=== PATIENT | female | born 1975 | race Two or more races ===

== ENCOUNTER → 2017-06-25 | Outpatient (CLI) | payer BC ==
[~2017-06-25] MED LIST: REGADENOSON 0.4 MG/5 ML DISP.SYRIN. IV ONE
--- NOTE | 2017-06-25 11:52 | CARD ---
APPROVED REPORT EXAM: Two-dimensional and M-mode echocardiogram with Doppler and color Doppler. Other Information Quality : GoodHR: 72bpm Rhythm : NSR INDICATION Atypical chest pain RISK FACTORS Obesity Family History Smoking 2D DIMENSIONS RVDd3.0 (2.9-3.5cm)Left Atrium(2D)3.5 (1.6-4.0cm) IVSd1.0 (0.7-1.1cm)Aortic Root(2D)2.6 (2.0-3.7cm) LVDd4.1 (3.9-5.9cm)LVOT Diameter2.2 (1.8-2.4cm) PWd0.7 (0.7-1.1cm)LVDs2.6 (2.5-4.0cm) FS (%) 36.4 %SV49.7 ml LVEF(%)66.6 (>50%) Aortic Valve AoV Peak Pillo.103.8cm/sAoV VTI23.4cm AO Peak GR.4.3mmHgLVOT Peak Pillo.81.0cm/s AO Mean GR.3mmHgAVA (VMAX)2.92cm2 Mitral Valve MV E Mkolqgpo44.7cm/sMV E Peak Gr.3mmHg MV DECEL [id number] A Mmqjlwcu64.1cm/s MV E Mean Gr.1mmHgE/A Ratio1.3 MV A [id number] Pulmonary Valve PV Peak Uagzivlg38.8cm/s Pulmonary Vein S1 Ovuyofog90.2cm/sD2 Yxzslssw92.6cm/s PVa [id number] LEFT VENTRICLE The left ventricle is normal size. There is normal left ventricular wall thickness. The left ventricu lar systolic function is normal. The Ejection Fraction is 55-60%. There is normal LV segmental wall m otion. The left ventricular diastolic function and filling is normal for age. RIGHT VENTRICLE The right ventricle is normal size. There is normal right ventricular wall thickness. The right ventr icular systolic function is normal. ATRIA The left atrium size is normal. The right atrium size is normal. The interatrial septum is intact wit h no evidence for an atrial septal defect or patent foramen ovale as noted on 2-D or Doppler imaging. AORTIC VALVE The aortic valve is normal in structure and function and is trileaflet. Doppler and Color Flow reveal ed no significant aortic regurgitation. There is no significant aortic valvular stenosis. MITRAL VALVE There is no evidence of mitral valve prolapse. There is no mitral valve stenosis. Doppler and Color F low revealed trace mitral regurgitation. TRICUSPID VALVE Doppler and Color Flow revealed no tricuspid valve regurgitation noted. Unable to determine pulmonary artery pressure at exam time. PULMONIC VALVE The pulmonic valve is not well visualized but appears to open well. Doppler and Color Flow revealed m ild pulmonic valvular regurgitation. There is no pulmonic valvular stenosis by spectral Doppler. GREAT VESSELS The aortic root is normal in size. The ascending aorta is normal in size. The pulmonary artery is nor mal. The IVC is normal in size and collapses >50% with inspiration. PERICARDIAL EFFUSION There is no evidence of significant pericardial effusion. Critical Notification Critical Value: No <Conclusion> The left ventricular systolic function is normal. The Ejection Fraction is 55-60%. There is normal LV segmental wall motion. Doppler and Color Flow revealed trace mitral regurgitation. There is no evidence of significant pericardial effusion.
--- NOTE | 2017-06-25 12:41 | RAD ---
APPROVED REPORT Test Type: Pharmacological Stress Nurse/Tech: Leigh Oden R.N. Test Indications: dyspnea, slight chest pain Cardiac History: No known cardiac , smoker Medications: See Electronic Medical Record Medical History: See Electronic Medical Record Resting ECG: NSR Resting Heart Rate: 64 bpm Resting Blood Pressure: 116/58mmHg Pretest Chest Pain: No chest pain Nurse/Tech Notes S1S2, lungs sound clear Consent: The procedure was explained to the patient in lay terms. Informed consent was witnessed. Jean Marie eout was entered into [employer]. History and Stress Test performed by Leigh Oden R.N. Pharm. Details Pharmacologic stress testing was performed using 0.4mg per 5ml of regadenoson given intravenously ove r 7-10 seconds. Stress Symptoms Dyspnea POST EXERCISE Reason for Termination: Infusion complete Max HR: 112 bpm Max Blood Pressure: 114/62mmHg Blood Pressure response to exercise: Normal blood pressure response during stress. Chest Pain: No. Arrhythmia: No. ST Change: No. INTERPRETATION Stress EKG Conclusion: The resting EKG shows a normal sinus rhythm. The stress EKG shows no significant changes from baseline. No EKG evidence of stress-induced ischemia. Imaging Protocol IMAGE PROTOCOL: Rest Tc-99m/stress Tc-99m 1 day Rest: Stress: Viability: Radiopharm.Tc99m EomqkhvifZw88r Sestamibi Dose12.1mCi 33mCi Duration 15min. 10min. Img Date 06/25/2017 06/25/2017 Inj-Img [id number]. 60min. Rest Admin Site:IV - Right AntecubitalAdministrator:ROMULO Lassiter Stress Admin Site: IV - Right AntecubitalAdministrator: DUNCAN Chiu, ARRT (R)(N) STRESS DATA End Diast. Vol.91.0mlAv. Heart Rate75.0bpm End Syst. Vol.24.0mlCO Index BSA0.0L/min Myocardial Kkjb407.0gEject. Sedwjpzh18.0% Stress Rates Pk. Fill Rate3.68EDV/secLVtime Pk. Fill 168.88msec Pk. Empty Rate4.30ESV/secLVtime Pk. Cmeiz602.89msec /3 Pk. Fill1.90EDV/sec Stress Scores Regional WT0.00Summed WT0.00 Regional WM0.00Summed WM0.00 LV Perfusion The stress scans showed no significant defects. The rest scans showed no significant defects. Nuclear imaging shows no reversible ischemia or infarct. Wall Motion Left ventricular systolic function is normal with an ejection fraction of greater than 70%. LV Perf. Quant 17 Seg. SSS0.00 17 Seg. SRS0.00 17 Seg. SDS0.00 Stress Defect Extent (% LAD)0.00Rest Defect Extent (% LAD)0.00Rev. Defect Extent (% LAD)0.00 Stress Defect Extent (% LCX) 0.00Rest Defect Extent (% LCX)0.00Rev. Defect Extent (% LCX)0.00 Stress Defect Extent (% RCA)0.00Rest Defect Extent (% RCA)0.00Rev. Defect Extent (% RCA)0.00 Stress Defect Extent (% TAM)0.00Rest Defect Extent (% TAM)0.00Rev. Defect Extent (% TAM)0.00 Conclusion 1. No EKG evidence of stress-induced ischemia. 2. Nuclear imaging shows no reversible ischemia or infarct. 3. Normal left ventricular systolic function with an ejection fraction of greater than 70%. 4. Low risk Lexiscan nuclear stress test.
== END | disposition home or self-care (01) ==
LOC: ECHO 07:32
PROVIDERS: ATTEND Internal Medicine Cardiovascular Disease
DX: I49.5 Sick sinus syndrome (principal); E66.9 Obesity, unspecified; R06.09 Other forms of dyspnea
CPT/HCPCS: 78452; 93017; 93306; 96374; 96375; 96376; A9500; J2785